=== PATIENT | female | born 1975 | race Caucasian/White ===

== ENCOUNTER 2018-06-16 13:59 | Emergency (ER) | payer OTHER, SELFPAY ==
[2018-06-16 14:15] VITALS: BP 124/82; PULSE 79; RESP 14; TEMP 37.7; O2SAT 100; BMI 28.1
--- NOTE | 2018-06-16 14:50 | PC.NURSE ---
Pt speaking with Chriss Welch
--- NOTE | 2018-06-16 14:51 | PC.NURSE ---
Pt talking with Chriss Welch
[2018-06-16 15:01] LABS: Urine Cocaine Negative (Negative); Urine Morphine/Opi cutoff 2000 Negative (Negative); Urine Tetrahydrocannabinol Positive (Negative)
[2018-06-16 15:02] LABS: Urine Amphetamines Negative (Negative); Urine Barbiturates Negative (Negative); Urine Benzodiazepines Negative (Negative); Urine MDMA Negative (Negative); Urine Methadone Negative (Negative); Urine Methamphetamines Negative (Negative); Urine Oxycodone Negative (Negative); Urine Phencyclidine Negative (Negative); Urine Tricyclic Antidepressant Positive (Negative)
--- NOTE | 2018-06-16 15:18 | ED.PSYCH ---
HPI - Psych <ASAD Greenberg - Last Filed: 06/16/18 21:48> General Chief Complaint: Psychiatric Symptoms Stated Complaint: Suicidal thoughts Time Seen by Provider: 06/16/18 14:29 Source: patient Mode of arrival: ambulatory Limitations: no limitations History of Present Illness HPI Narrative: 43-year-old female with a history of depression and anxiety that is a nonsmoker here for complaint of having suicidal ideations starting today. She states that she has a plan that she would like to jump off the bridge referencing deception past bridge. She states that she has not been on her depression anxiety medicine since March when she cold turkey quit. She reports that she has been having difficulties as of lately as she is going through a divorce and she is not on speaking terms with her daughter so therefore she does not have a support network available to her she really feels that she is having difficulties with daily tasks and taking care of herself. She denies any prior history of having suicidal ideations however there have been times where she wanted to . She denies any actions or history of self-harm. She denies any homicidal ideation. She is desiring inpatient services and is voluntary. She denies any alcohol or drug use. MD complaint: suicidal ideation Related Data Home Medications Medication Instructions Recorded Confirmed doxylamine succinate [Sleep Aid PO PRN PRN #0 11/28/16 05/17/18 (doxylamine)] Previous Rx's Medication Instructions Recorded duloxetine 30 mg capsule,delayed 30 mg PO QDAY #30 cap 12/05/17 release mirtazapine 15 mg tablet 15 mg PO DAILY #30 tab 05/17/18 lorazepam 1 mg PO BID PRN #2 tab 06/16/18 Allergies Allergy/AdvReac Type Severity Reaction Status Date / Time ofloxacin [From FLOXIN] Allergy Mild RASH Verified 06/16/18 14:15 Review of Systems <ASAD Greenberg - Last Filed: 06/16/18 21:48> Constitutional Denies chills, Denies fever(s), Denies lethargy and Denies weakness Eyes Denies change in vision, Denies eye discharge, Denies irritation and Denies loss of vision ENT Ears, Nose, Mouth, and Throat: Denies change in voice, Denies neck pain and Denies sore throat Cardiovascular Denies chest pain, Denies irregular heart rhythm, Denies lightheadedness, Denies palpitations, Denies dyspnea, Denies dyspnea on exertion and Denies orthopnea Respiratory Denies cough, Denies dyspnea, Denies dyspnea on exertion and Denies wheezing Gastrointestinal Gastrointestinal: Denies abdominal pain, Denies change in bowel habits, Denies diarrhea, Denies nausea and Denies vomiting Genitourinary Denies hematuria, Denies flank pain, Denies urinary incontinence and Denies urinary urgency Musculoskeletal Denies neck pain Integumentary/Breasts Denies pruritus, Denies erythema, Denies rash and Denies wounds Neurologic Denies confusion, Denies loss of vision and Denies weakness Psychiatric Denies anxiety, Denies confusion, Denies depression, Denies homicidal ideation and Reports suicidal ideation Endocrine Denies palpitations Hematologic/Lymphatic Denies easy bruising Allergic/Immunologic Denies wheezing PFSH <ASAD Greenberg - Last Filed: 06/16/18 21:48> Surgical History History of third molar tooth extraction Status post delivery (03/07/98) Social History Smoking Status: Former smoker Social History Smoking Status: Former smoker Exam <ASAD Greenberg - Last Filed: 06/16/18 21:48> Initial Vital Signs Initial Vital Signs: Vital Signs Temperature 99.8 F H 06/16/18 14:15 Pulse Rate 79 06/16/18 14:15 Respiratory Rate 14 06/16/18 14:15 Blood Pressure 124/82 06/16/18 14:15 Pulse Oximetry 100 06/16/18 14:15 Const General: cooperative and well developed Nutritional Appearance: well nourished Orientation: alert, awake, oriented x3 and not confused [facility] Mouth: oral mucosae normal and moist mucous membranes Eyes Conjunctivae: conjunctivae normal Sclera: sclerae normal Pupils: PERRL EOM: EOM intact bilaterally Resp Effort & Inspection: normal respiratory effort, able to speak in complete sentences, no respiratory distress and no use of accessory muscles Auscultation: clear to auscultation bilaterally, no rales, no rhonchi and no wheezes Cardio Rate: regular rate Rhythm: regular rhythm Heart Sounds: no click, no gallops, no murmurs and no rubs Skin General: no rashes or lesions noted, No jaundice and No petechiae Neuro General: alert, oriented x3, gait normal and no focal motor deficits Speech: speech normal Psych Speech and Movement: speech and movement normal Mood: congruent mood Affect: normal affect Attitude: cooperative Thought Process: normal Thought Content: no homicidality and suicidality <Jenn Walker DO - Last Filed: 06/17/18 08:29> Initial Vital Signs Initial Vital Signs: Vital Signs Temperature 99.8 F H 06/16/18 14:15 Pulse Rate 79 06/16/18 14:15 Respiratory Rate 14 06/16/18 14:15 Blood Pressure 124/82 06/16/18 14:15 Pulse Oximetry 100 06/16/18 14:15 Course <ASAD Greenberg - Last Filed: 06/16/18 21:48> Orders Ordered: Discontinued Medications Lorazepam (Ativan) 0.5 mg PO NOW ONE Stop: 06/16/18 16:18 Last Admin: 06/16/18 16:18 Dose: 0.5 mg Vital Signs - 8 hr 06/16/18 14:15 06/16/18 18:13 Temperature 99.8 F H Pulse Rate 79 97 H Respiratory Rate 14 14 Blood Pressure 124/82 Blood Pressure [Left Arm] 127/88 Pulse Oximetry 100 99 <Jenn Walker DO - Last Filed: 06/17/18 08:29> Orders Ordered: Discontinued Medications Lorazepam (Ativan) 0.5 mg PO NOW ONE Stop: 06/16/18 16:18 Last Admin: 06/16/18 16:18 Dose: 0.5 mg Vital Signs - 8 hr 06/16/18 14:15 06/16/18 18:13 Temperature 99.8 F H Pulse Rate 79 97 H Respiratory Rate 14 14 Blood Pressure 124/82 Blood Pressure [Left Arm] 127/88 Pulse Oximetry 100 99 MDM - Psych <ASAD Greenberg - Last Filed: 06/16/18 21:48> Lab Data Result diagrams: 06/16/18 15:30 06/16/18 15:30 Lab Results 06/16/18 06/16/18 06/16/18 Range/Units 14:27 15:30 15:30 WBC 7.4 (4.5-11.0) X10^3/uL RBC 4.47 (4.0-5.2) X10^6/uL Hgb 14.0 (12.0-16.0) g/dL Hct 41.7 (36-46) % MCV 93.3 (80-100) fL MCH 31.3 (26-34) PG MCHC 33.6 (30-36) % RDW 12.5 (11.6-14.8) % Plt Count 254 (150-400) X10^3/uL Neut % (Auto) 69.9 (50-75) % Lymph % (Auto) 21.8 L (25-40) % Moca % (Auto) 6.1 (3-14) % Eos % (Auto) 1.4 L (2-4) % Baso % (Auto) 0.8 (0-2) % Neut # (Auto) 5200 (8454-7099) /uL Lymph # (Auto) 1600 (8704-2707) /uL Moca # (Auto) 500 (0-900) /uL Eos # (Auto) 100 (0-450) /uL Baso # (Auto) 100 (0-100) /uL Sodium 141 (137-145) mmol/L Potassium 4.5 (3.4-5.1) mmol/L Chloride 106 (98-107) mmol/L Carbon Dioxide 26 (22-32) mmol/L BUN 16 (7-17) mg/dL Creatinine 0.70 (0.52-1.04) mg/dL Estimated GFR > 60.0 (>60) mL/min BUN/Creatinine Ratio 22.9 H (6-22) Glucose 126 H (70-100) mg/dL Calcium 9.5 (8.4-10.2) mg/dL Total Bilirubin 0.4 (0.2-1.3) mg/dL AST 26 (14-36) IU/L ALT 38 (9-52) IU/L Alkaline Phosphatase 66 (38-126) U/L Total Protein 7.2 (6.3-8.2) g/dL Albumin 4.3 (3.5-5.0) g/dL Globulin 2.9 (1.7-4.1) g/dL Albumin/Globulin Ratio 1.5 (1.0-2.8) TSH (0.47-4.68) uIU/mL Urine Opiates Screen Negative (Negative) Ur Oxycodone Screen Negative (Negative) Urine Methadone Screen Negative (Negative) Ur Barbiturates Screen Negative (Negative) U Tricyclic Antidepress Positive H (Negative) Ur Phencyclidine Scrn Negative (Negative) Ur Amphetamines Screen Negative (Negative) U Methamphetamines Scrn Negative (Negative) Ur MDMA Scrn (Ecstasy) Negative (Negative) U Benzodiazepines Scrn Negative (Negative) Urine Cocaine Screen Negative (Negative) U Marijuana (THC) Screen Positive H (Negative) 06/16/18 Range/Units 15:30 WBC (4.5-11.0) X10^3/uL RBC (4.0-5.2) X10^6/uL Hgb (12.0-16.0) g/dL Hct (36-46) % MCV (80-100) fL MCH (26-34) PG MCHC (30-36) % RDW (11.6-14.8) % Plt Count (150-400) X10^3/uL Neut % (Auto) (50-75) % Lymph % (Auto) (25-40) % Moca % (Auto) (3-14) % Eos % (Auto) (2-4) % Baso % (Auto) (0-2) % Neut # (Auto) (1714-7468) /uL Lymph # (Auto) (2712-9902) /uL Moca # (Auto) (0-900) /uL Eos # (Auto) (0-450) /uL Baso # (Auto) (0-100) /uL Sodium (137-145) mmol/L Potassium (3.4-5.1) mmol/L Chloride (98-107) mmol/L Carbon Dioxide (22-32) mmol/L BUN (7-17) mg/dL Creatinine (0.52-1.04) mg/dL Estimated GFR (>60) mL/min BUN/Creatinine Ratio (6-22) Glucose (70-100) mg/dL Calcium (8.4-10.2) mg/dL Total Bilirubin (0.2-1.3) mg/dL AST (14-36) IU/L ALT (9-52) IU/L Alkaline Phosphatase (38-126) U/L Total Protein (6.3-8.2) g/dL Albumin (3.5-5.0) g/dL Globulin (1.7-4.1) g/dL Albumin/Globulin Ratio (1.0-2.8) TSH 2.29 (0.47-4.68) uIU/mL Urine Opiates Screen (Negative) Ur Oxycodone Screen (Negative) Urine Methadone Screen (Negative) Ur Barbiturates Screen (Negative) U Tricyclic Antidepress (Negative) Ur Phencyclidine Scrn (Negative) Ur Amphetamines Screen (Negative) U Methamphetamines Scrn (Negative) Ur MDMA Scrn (Ecstasy) (Negative) U Benzodiazepines Scrn (Negative) Urine Cocaine Screen (Negative) U Marijuana (THC) Screen (Negative) Point of Care Testing Test Results Negative Breathalizer 0 Urine Dip Bedside Urine Glucose Negative Bedside Urine Bilirubin - Negative Bedside Urine Ketone - Negative Urine Specific [place] 1.020 Bedside Urine Occult Blood +++ Bedside Urine pH 6.0 Bedside Urine Protein - Negative Bedside Urine Urobilinogen - Negative Bedside Urine Nitrite - Negative Bedside Urine Leukocytes - Negative Esterase MDM Narrative Medical decision making narrative: CBC was obtained was unremarkable. Chem panel was also obtained was also unremarkable. Urinalysis Indicated WBCs and leuko esterase however she had 1-5 of squamous cells and she denies having any urinary symptoms. Will hold on treatment for UTI at this timeframe. Urine drug screen was positive for marijuana and tricyclics. Inpatient bed was found at [facility] and accepted her. The patient had a change of heart and decided that she wanted to go home. She was concerned about her pets at home and also the cost of inpatient services. Had good discussion with patient about his safety and that I was concerned about her going home to an empty house. She states that she would have her stay with her in the next couple of days so that we she would not be home. She verbalized agreement to safety and that she would not do anything dangerous to harm herself or others. She was set up by [facility] they will call her tomorrow to check on her. She has the hotline number that she will call or call 911 or go to the emergency room if things worsen. She requested a few tablets of medication to help with any anxiety. Due to her current state she is only given 2 tablets of Ativan 1 per day until she can get by until Monday. In when time she will see [facility]. <Jenn Walker, DO - Last Filed: 06/17/18 08:29> Lab Data Lab Results 06/16/18 06/16/18 06/16/18 Range/Units 14:27 15:30 15:30 WBC 7.4 (4.5-11.0) X10^3/uL RBC 4.47 (4.0-5.2) X10^6/uL Hgb 14.0 (12.0-16.0) g/dL Hct 41.7 (36-46) % MCV 93.3 (80-100) fL MCH 31.3 (26-34) PG MCHC 33.6 (30-36) % RDW 12.5 (11.6-14.8) % Plt Count 254 (150-400) X10^3/uL Neut % (Auto) 69.9 (50-75) % Lymph % (Auto) 21.8 L (25-40) % Moca % (Auto) 6.1 (3-14) % Eos % (Auto) 1.4 L (2-4) % Baso % (Auto) 0.8 (0-2) % Neut # (Auto) 5200 (1729-4518) /uL Lymph # (Auto) 1600 (4985-5895) /uL Moca # (Auto) 500 (0-900) /uL Eos # (Auto) 100 (0-450) /uL Baso # (Auto) 100 (0-100) /uL Sodium 141 (137-145) mmol/L Potassium 4.5 (3.4-5.1) mmol/L Chloride 106 (98-107) mmol/L Carbon Dioxide 26 (22-32) mmol/L BUN 16 (7-17) mg/dL Creatinine 0.70 (0.52-1.04) mg/dL Estimated GFR > 60.0 (>60) mL/min BUN/Creatinine Ratio 22.9 H (6-22) Glucose 126 H (70-100) mg/dL Calcium 9.5 (8.4-10.2) mg/dL Total Bilirubin 0.4 (0.2-1.3) mg/dL AST 26 (14-36) IU/L ALT 38 (9-52) IU/L Alkaline Phosphatase 66 (38-126) U/L Total Protein 7.2 (6.3-8.2) g/dL Albumin 4.3 (3.5-5.0) g/dL Globulin 2.9 (1.7-4.1) g/dL Albumin/Globulin Ratio 1.5 (1.0-2.8) TSH (0.47-4.68) uIU/mL Urine Opiates Screen Negative (Negative) Ur Oxycodone Screen Negative (Negative) Urine Methadone Screen Negative (Negative) Ur Barbiturates Screen Negative (Negative) U Tricyclic Antidepress Positive H (Negative) Ur Phencyclidine Scrn Negative (Negative) Ur Amphetamines Screen Negative (Negative) U Methamphetamines Scrn Negative (Negative) Ur MDMA Scrn (Ecstasy) Negative (Negative) U Benzodiazepines Scrn Negative (Negative) Urine Cocaine Screen Negative (Negative) U Marijuana (THC) Screen Positive H (Negative) 06/16/18 Range/Units 15:30 WBC (4.5-11.0) X10^3/uL RBC (4.0-5.2) X10^6/uL Hgb (12.0-16.0) g/dL Hct (36-46) % MCV (80-100) fL MCH (26-34) PG MCHC (30-36) % RDW (11.6-14.8) % Plt Count (150-400) X10^3/uL Neut % (Auto) (50-75) % Lymph % (Auto) (25-40) % Moca % (Auto) (3-14) % Eos % (Auto) (2-4) % Baso % (Auto) (0-2) % Neut # (Auto) (8422-7002) /uL Lymph # (Auto) (6110-4296) /uL Moca # (Auto) (0-900) /uL Eos # (Auto) (0-450) /uL Baso # (Auto) (0-100) /uL Sodium (137-145) mmol/L Potassium (3.4-5.1) mmol/L Chloride (98-107) mmol/L Carbon Dioxide (22-32) mmol/L BUN (7-17) mg/dL Creatinine (0.52-1.04) mg/dL Estimated GFR (>60) mL/min BUN/Creatinine Ratio (6-22) Glucose (70-100) mg/dL Calcium (8.4-10.2) mg/dL Total Bilirubin (0.2-1.3) mg/dL AST (14-36) IU/L ALT (9-52) IU/L Alkaline Phosphatase (38-126) U/L Total Protein (6.3-8.2) g/dL Albumin (3.5-5.0) g/dL Globulin (1.7-4.1) g/dL Albumin/Globulin Ratio (1.0-2.8) TSH 2.29 (0.47-4.68) uIU/mL Urine Opiates Screen (Negative) Ur Oxycodone Screen (Negative) Urine Methadone Screen (Negative) Ur Barbiturates Screen (Negative) U Tricyclic Antidepress (Negative) Ur Phencyclidine Scrn (Negative) Ur Amphetamines Screen (Negative) U Methamphetamines Scrn (Negative) Ur MDMA Scrn (Ecstasy) (Negative) U Benzodiazepines Scrn (Negative) Urine Cocaine Screen (Negative) U Marijuana (THC) Screen (Negative) Point of Care Testing Test Results Negative Breathalizer 0 Urine Dip Bedside Urine Glucose Negative Bedside Urine Bilirubin - Negative Bedside Urine Ketone - Negative Urine Specific [place] 1.020 Bedside Urine Occult Blood +++ Bedside Urine pH 6.0 Bedside Urine Protein - Negative Bedside Urine Urobilinogen - Negative Bedside Urine Nitrite - Negative Bedside Urine Leukocytes - Negative Esterase Discharge Plan Departure Patient Disposition: Home Clinical Impression: Suicidal ideation Discharge Date/Time: 06/16/18 18:23 Interventions: ED Discharge Assessment Last Done: 06/16/18 18:23 Instructions: DI for Suicidal Ideation-Adult Activity Restrictions/Additional Instructions: Follow up with [facility] as directed in the next couple of days. They will call on you to check to ensure that you are doing well. If symptoms worsen call the hotline number or call 911 or return to the emergency room. A couple of Ativan tablets have been prescribed to help with anxiety to use over the next couple of days. Follow up with primary care provider. Return emergency room for worsening symptoms. Prescriptions: New lorazepam 1 mg tablet 1 mg PO BID PRN (Reason: anxiety) Qty: 2 RF: 0 No Action mirtazapine 15 mg tablet 15 mg PO DAILY Qty: 30 RF: 0 doxylamine succinate [Sleep Aid (doxylamine)] 25 MG tablet PO PRN PRNQty: 0 RF: 0 duloxetine 30 mg capsule,delayed release(DR/EC) 30 mg PO QDAY Qty: 30 RF: 3 Referrals: [facility] [Provider Group] <Jenn Walker DO - Last Filed: 06/17/18 08:29> Cosign ED Attending Shanta Attestation: I was immediately available in the department for consultation. Documentation has been reviewed. I agree with assessment and plan.
[2018-06-16 15:37] LABS: Add Manual Diff / Slide Review NO; Basophils Absolute Auto 100 /uL (0-100); Basophils Percent Auto 0.8 % (0-2); Eosinophils Absolute Auto 100 /uL (0-450); Eosinophils Percent Auto 1.4 % (2-4); Hematocrit 41.7 % (36-46); Lymphocytes Absolute Auto 1600 /uL (1100-4500); Lymphocytes Percent Auto 21.8 % (25-40); Mean Corpuscular HGB Conc 33.6 % (30-36); Mean Corpuscular Hemoglobin 31.3 PG (26-34); Mean Corpuscular Volume 93.3 fL (80-100); Monocytes Absolute Auto 500 /uL (0-900); Monocytes Percent Auto 6.1 % (3-14); Neutrophils Absolute Auto 5200 /uL (1500-7000); Neutrophils Percent Auto 69.9 % (50-75); Platelet Count 254 X10^3/uL (150-400); Red Blood Cell Count 4.47 X10^6/uL (4.0-5.2); Red Cell Distribution Width 12.5 % (11.6-14.8); White Blood Cell Count 7.4 X10^3/uL (4.5-11.0)
[2018-06-16 15:48] LABS: Alanine Aminotransferase 38 IU/L (9-52); Albumin 4.3 g/dL (3.5-5.0); Albumin Globulin Ratio 1.5 (1.0-2.8); Alkaline Phosphatase 66 U/L (38-126); Aspartate Aminotransferase 26 IU/L (14-36); BUN Creatinine Ratio 22.9 (6-22); Bilirubin Total 0.4 mg/dL (0.2-1.3); Blood Urea Nitrogen 16 mg/dL (7-17); Calcium 9.5 mg/dL (8.4-10.2); Carbon Dioxide 26 mmol/L (22-32); Chloride 106 mmol/L (98-107); Estimated Glomerular Filt Rate > 60.0 mL/min (>60); Globulin 2.9 g/dL (1.7-4.1); Glucose 126 mg/dL (70-100); HEMOLYSIS < 15 (0-50); Potassium 4.5 mmol/L (3.4-5.1); Sodium 141 mmol/L (137-145); Total Protein 7.2 g/dL (6.3-8.2)
--- NOTE | 2018-06-16 15:50 | ED_ITS ---
HPI - Psych <ASAD Greenberg - Last Filed: 06/16/18 21:48> General Chief Complaint: Psychiatric Symptoms Stated Complaint: Suicidal thoughts Time Seen by Provider: 06/16/18 14:29 Source: patient Mode of arrival: ambulatory Limitations: no limitations History of Present Illness HPI Narrative: 43-year-old female with a history of depression and anxiety that is a nonsmoker here for complaint of having suicidal ideations starting today. She states that she has a plan that she would like to jump off the bridge referencing deception past bridge. She states that she has not been on her de pression anxiety medicine since March when she cold turkey quit. She reports that she has been having difficulties as of lately as she is going through a divorce and she is not on speaking terms with her daughter so therefore she does not have a support network available to her she really feels that she is having difficulties with daily tasks and taking care of herself. She denies any prior history of having suicidal ideations however there have been times where she wanted to . She denies any actions or history of self-harm. She denies any homicidal ideation. She is desiring inpatient services and is voluntary. She denies any alcohol or drug use. MD complaint: suicidal ideation Related Data Home Medications Medication Instructions Recorded Confirmed doxylamine succinate [Sleep Aid PO PRN PRN #0 11/28/16 05/17/18 (doxylamine)] Previous Rx's Medication Instructions Recorded duloxetine 30 mg capsule,delayed 30 mg PO QDAY #30 cap 12/05/17 release mirtazapine 15 mg tablet 15 mg PO DAILY #30 tab 05/17/18 lorazepam 1 mg PO BID PRN #2 tab 06/16/18 Allergies Allergy/AdvReac Type Severity Reaction Status Date / Time ofloxacin [From FLOXIN] Allergy Mild RASH Verified 06/16/18 14:15 Review of Systems <ASAD Greenberg - Last Filed: 06/16/18 21:48> Constitutional Denies chills, Denies fever(s), Denies lethargy and Denies weakness Eyes Denies change in vision, Denies eye discharge, Denies irritation and Denies loss of vision ENT Ears, Nose, Mouth, and Throat: Denies change in voice, Denies neck pain and Denies sore throat Cardiovascular Denies chest pain, Denies irregular heart rhythm, Denies lightheadedness, Denies palpitations, Denies dyspnea, Denies dyspnea on exertion and Denies orthopnea Respiratory Denies cough, Denies dyspnea, Denies dyspnea on exertion and Denies wheezing Gastrointestinal Gastrointestinal: Denies abdominal pain, Denies change in bowel habits, Denies diarrhea, Denies nausea and Denies vomiting Genitourinary Denies hematuria, Denies flank pain, Denies urinary incontinence and Denies urinary urgency Musculoskeletal Denies neck pain Integumentary/Breasts Denies pruritus, Denies erythema, Denies rash and Denies wounds Neurologic Denies confusion, Denies loss of vision and Denies weakness Psychiatric Denies anxiety, Denies confusion, Denies depression, Denies homicidal ideation and Reports suicidal ideation Endocrine Denies palpitations Hematologic/Lymphatic Denies easy bruising Allergic/Immunologic Denies wheezing PFSH <ASAD Greenberg - Last Filed: 06/16/18 21:48> Surgical History History of third molar tooth extraction Status post delivery (03/07/98) Social History Smoking Status: Former smoker Social History Smoking Status: Former smoker Exam <ASAD Greenberg - Last Filed: 06/16/18 21:48> Initial Vital Signs Initial Vital Signs: Vital Signs Temperature 99.8 F H 06/16/18 14:15 Pulse Rate 79 06/16/18 14:15 Respiratory Rate 14 06/16/18 14:15 Blood Pressure 124/82 06/16/18 14:15 Pulse Oximetry 100 06/16/18 14:15 Const General: cooperative and well developed Nutritional Appearance: well nourished Orientation: alert, awake, oriented x3 and not confused [facility] Mouth: oral mucosae normal and moist mucous membranes Eyes Conjunctivae: conjunctivae normal Sclera: sclerae normal Pupils: PERRL EOM: EOM intact bilaterally Resp Effort & Inspection: normal respiratory effort, able to speak in complete sentences, no respiratory distress and no use of accessory muscles Auscultation: clear to auscultation bilaterally, no rales, no rhonchi and no wheezes Cardio Rate: regular rate Rhythm: regular rhythm Heart Sounds: no click, no gallops, no murmurs and no rubs Skin General: no rashes or lesions noted, No jaundice and No petechiae Neuro General: alert, oriented x3, gait normal and no focal motor deficits Speech: speech normal Psych Speech and Movement: speech and movement normal Mood: congruent mood Affect: normal affect Attitude: cooperative Thought Process: normal Thought Content: no homicidality and suicidality <Jenn Walker DO - Last Filed: 06/17/18 08:29> Initial Vital Signs Initial Vital Signs: Vital Signs Temperature 99.8 F H 06/16/18 14:15 Pulse Rate 79 06/16/18 14:15 Respiratory Rate 14 06/16/18 14:15 Blood Pressure 124/82 06/16/18 14:15 Pulse Oximetry 100 06/16/18 14:15 Course <ASAD Greenberg - Last Filed: 06/16/18 21:48> Orders Ordered: Discontinued Medications Lorazepam (Ativan) 0.5 mg PO NOW ONE Stop: 06/16/18 16:18 Last Admin: 06/16/18 16:18 Dose: 0.5 mg Vital Signs - 8 hr 06/16/18 14:15 06/16/18 18:13 Temperature 99.8 F H Pulse Rate 79 97 H Respiratory Rate 14 14 Blood Pressure 124/82 Blood Pressure [Left Arm] 127/88 Pulse Oximetry 100 99 <Jenn Walker DO - Last Filed: 06/17/18 08:29> Orders Ordered: Discontinued Medications Lorazepam (Ativan) 0.5 mg PO NOW ONE Stop: 06/16/18 16:18 Last Admin: 06/16/18 16:18 Dose: 0.5 mg Vital Signs - 8 hr 06/16/18 14:15 06/16/18 18:13 Temperature 99.8 F H Pulse Rate 79 97 H Respiratory Rate 14 14 Blood Pressure 124/82 Blood Pressure [Left Arm] 127/88 Pulse Oximetry 100 99 MDM - Psych <ASAD Greenberg - Last Filed: 06/16/18 21:48> Lab Data Result diagrams: 06/16/18 15:30 06/16/18 15:30 Lab Results 06/16/18 06/16/18 06/16/18 Range/Units 14:27 15:30 15:30 WBC 7.4 (4.5-11.0) X10^3/uL RBC 4.47 (4.0-5.2) X10^6/uL Hgb 14.0 (12.0-16.0) g/dL Hct 41.7 (36-46) % MCV 93.3 (80-100) fL MCH 31.3 (26-34) PG MCHC 33.6 (30-36) % RDW 12.5 (11.6-14.8) % Plt Count 254 (150-400) X10^3/uL Neut % (Auto) 69.9 (50-75) % Lymph % (Auto) 21.8 L (25-40) % Towner % (Auto) 6.1 (3-14) % Eos % (Auto) 1.4 L (2-4) % Baso % (Auto) 0.8 (0-2) % Neut # (Auto) 5200 (8556-2557) /uL Lymph # (Auto) 1600 (1369-9854) /uL Towner # (Auto) 500 (0-900) /uL Eos # (Auto) 100 (0-450) /uL Baso # (Auto) 100 (0-100) /uL Sodium 141 (137-145) mmol/L Potassium 4.5 (3.4-5.1) mmol/L Chloride 106 (98-107) mmol/L Carbon Dioxide 26 (22-32) mmol/L BUN 16 (7-17) mg/dL Creatinine 0.70 (0.52-1.04) mg/dL Estimated GFR > 60.0 (>60) mL/min BUN/Creatinine Ratio 22.9 H (6-22) Glucose 126 H (70-100) mg/dL Calcium 9.5 (8.4-10.2) mg/dL Total Bilirubin 0.4 (0.2-1.3) mg/dL AST 26 (14-36) IU/L ALT 38 (9-52) IU/L Alkaline Phosphatase 66 (38-126) U/L Total Protein 7.2 (6.3-8.2) g/dL Albumin 4.3 (3.5-5.0) g/dL Globulin 2.9 (1.7-4.1) g/dL Albumin/Globulin Ratio 1.5 (1.0-2.8) TSH (0.47-4.68) uIU/mL Urine Opiates Screen Negative (Negative) Ur Oxycodone Screen Negative (Negative) Urine Methadone Screen Negative (Negative) Ur Barbiturates Screen Negative (Negative) U Tricyclic Antidepress Positive H (Negative) Ur Phencyclidine Scrn Negative (Negative) Ur Amphetamines Screen Negative (Negative) U Methamphetamines Scrn Negative (Negative) Ur MDMA Scrn (Ecstasy) Negative (Negative) U Benzodiazepines Scrn Negative (Negative) Urine Cocaine Screen Negative (Negative) U Marijuana (THC) Screen Positive H (Negative) 06/16/18 Range/Units 15:30 WBC (4.5-11.0) X10^3/uL RBC (4.0-5.2) X10^6/uL Hgb (12.0-16.0) g/dL Hct (36-46) % MCV (80-100) fL MCH (26-34) PG MCHC (30-36) % RDW (11.6-14.8) % Plt Count (150-400) X10^3/uL Neut % (Auto) (50-75) % Lymph % (Auto) (25-40) % Towner % (Auto) (3-14) % Eos % (Auto) (2-4) % Baso % (Auto) (0-2) % Neut # (Auto) (0968-5501) /uL Lymph # (Auto) (0921-0024) /uL Towner # (Auto) (0-900) /uL Eos # (Auto) (0-450) /uL Baso # (Auto) (0-100) /uL Sodium (137-145) mmol/L Potassium (3.4-5.1) mmol/L Chloride (98-107) mmol/L Carbon Dioxide (22-32) mmol/L BUN (7-17) mg/dL Creatinine (0.52-1.04) mg/dL Estimated GFR (>60) mL/min BUN/Creatinine Ratio (6-22) Glucose (70-100) mg/dL Calcium (8.4-10.2) mg/dL Total Bilirubin (0.2-1.3) mg/dL AST (14-36) IU/L ALT (9-52) IU/L Alkaline Phosphatase (38-126) U/L Total Protein (6.3-8.2) g/dL Albumin (3.5-5.0) g/dL Globulin (1.7-4.1) g/dL Albumin/Globulin Ratio (1.0-2.8) TSH 2.29 (0.47-4.68) uIU/mL Urine Opiates Screen (Negative) Ur Oxycodone Screen (Negative) Urine Methadone Screen (Negative) Ur Barbiturates Screen (Negative) U Tricyclic Antidepress (Negative) Ur Phencyclidine Scrn (Negative) Ur Amphetamines Screen (Negative) U Methamphetamines Scrn (Negative) Ur MDMA Scrn (Ecstasy) (Negative) U Benzodiazepines Scrn (Negative) Urine Cocaine Screen (Negative) U Marijuana (THC) Screen (Negative) Point of Care Testing Test Results Negative Breathalizer 0 Urine Dip Bedside Urine Glucose Negative Bedside Urine Bilirubin - Negative Bedside Urine Ketone - Negative Urine Specific Bee 1.020 Bedside Urine Occult Blood +++ Bedside Urine pH 6.0 Bedside Urine Protein - Negative Bedside Urine Urobilinogen - Negative Bedside Urine Nitrite - Negative Bedside Urine Leukocytes - Negative Esterase MDM Narrative Medical decision making narrative: CBC was obtained was unremarkable. Chem panel was also obtained was also unremarkable. Urinalysis Indicated WBCs and leuko esterase however she had 1-5 of squamous cells and she denies having any urinary symptoms. Will hold on treatment for UTI at this timeframe. Urine drug screen was positive for marijuana and tricyclics. Inpatient bed was found at [facility] and accepted her. The patient had a change of heart and decided that she wanted to go home. She was concerned about her pets at home and also the cost of inpatient services. Had good discussion with patient about his safety and that I was concerned about her going home to an empty house. She states that she would have her stay with her in the next couple of days so that we she would not be home. She verbalized agreement to safety and that she would not do anything dangerous to harm herself or others. She was set up by [facility] they will call her tomorrow to check on her. She has the hotline number that she will call or call 911 or go to the emergency room if things worsen. She requested a few tablets of medication to help with any anxiety. Due to her current state she is only given 2 tablets of Ativan 1 per day until she can get by until Monday. In when time she will see [facility]. <Jenn Stephaniejorge a, DO - Last Filed: 06/17/18 08:29> Lab Data Lab Results 06/16/18 06/16/18 06/16/18 Range/Units 14:27 15:30 15:30 WBC 7.4 (4.5-11.0) X10^3/uL RBC 4.47 (4.0-5.2) X10^6/uL Hgb 14.0 (12.0-16.0) g/dL Hct 41.7 (36-46) % MCV 93.3 (80-100) fL MCH 31.3 (26-34) PG MCHC 33.6 (30-36) % RDW 12.5 (11.6-14.8) % Plt Count 254 (150-400) X10^3/uL Neut % (Auto) 69.9 (50-75) % Lymph % (Auto) 21.8 L (25-40) % Towner % (Auto) 6.1 (3-14) % Eos % (Auto) 1.4 L (2-4) % Baso % (Auto) 0.8 (0-2) % Neut # (Auto) 5200 (2331-5234) /uL Lymph # (Auto) 1600 (4824-9941) /uL Towner # (Auto) 500 (0-900) /uL Eos # (Auto) 100 (0-450) /uL Baso # (Auto) 100 (0-100) /uL Sodium 141 (137-145) mmol/L Potassium 4.5 (3.4-5.1) mmol/L Chloride 106 (98-107) mmol/L Carbon Dioxide 26 (22-32) mmol/L BUN 16 (7-17) mg/dL Creatinine 0.70 (0.52-1.04) mg/dL Estimated GFR > 60.0 (>60) mL/min BUN/Creatinine Ratio 22.9 H (6-22) Glucose 126 H (70-100) mg/dL Calcium 9.5 (8.4-10.2) mg/dL Total Bilirubin 0.4 (0.2-1.3) mg/dL AST 26 (14-36) IU/L ALT 38 (9-52) IU/L Alkaline Phosphatase 66 (38-126) U/L Total Protein 7.2 (6.3-8.2) g/dL Albumin 4.3 (3.5-5.0) g/dL Globulin 2.9 (1.7-4.1) g/dL Albumin/Globulin Ratio 1.5 (1.0-2.8) TSH (0.47-4.68) uIU/mL Urine Opiates Screen Negative (Negative) Ur Oxycodone Screen Negative (Negative) Urine Methadone Screen Negative (Negative) Ur Barbiturates Screen Negative (Negative) U Tricyclic Antidepress Positive H (Negative) Ur Phencyclidine Scrn Negative (Negative) Ur Amphetamines Screen Negative (Negative) U Methamphetamines Scrn Negative (Negative) Ur MDMA Scrn (Ecstasy) Negative (Negative) U Benzodiazepines Scrn Negative (Negative) Urine Cocaine Screen Negative (Negative) U Marijuana (THC) Screen Positive H (Negative) 06/16/18 Range/Units 15:30 WBC (4.5-11.0) X10^3/uL RBC (4.0-5.2) X10^6/uL Hgb (12.0-16.0) g/dL Hct (36-46) % MCV (80-100) fL MCH (26-34) PG MCHC (30-36) % RDW (11.6-14.8) % Plt Count (150-400) X10^3/uL Neut % (Auto) (50-75) % Lymph % (Auto) (25-40) % Towner % (Auto) (3-14) % Eos % (Auto) (2-4) % Baso % (Auto) (0-2) % Neut # (Auto) (3652-5920) /uL Lymph # (Auto) (9285-0653) /uL Towner # (Auto) (0-900) /uL Eos # (Auto) (0-450) /uL Baso # (Auto) (0-100) /uL Sodium (137-145) mmol/L Potassium (3.4-5.1) mmol/L Chloride (98-107) mmol/L Carbon Dioxide (22-32) mmol/L BUN (7-17) mg/dL Creatinine (0.52-1.04) mg/dL Estimated GFR (>60) mL/min BUN/Creatinine Ratio (6-22) Glucose (70-100) mg/dL Calcium (8.4-10.2) mg/dL Total Bilirubin (0.2-1.3) mg/dL AST (14-36) IU/L ALT (9-52) IU/L Alkaline Phosphatase (38-126) U/L Total Protein (6.3-8.2) g/dL Albumin (3.5-5.0) g/dL Globulin (1.7-4.1) g/dL Albumin/Globulin Ratio (1.0-2.8) TSH 2.29 (0.47-4.68) uIU/mL Urine Opiates Screen (Negative) Ur Oxycodone Screen (Negative) Urine Methadone Screen (Negative) Ur Barbiturates Screen (Negative) U Tricyclic Antidepress (Negative) Ur Phencyclidine Scrn (Negative) Ur Amphetamines Screen (Negative) U Methamphetamines Scrn (Negative) Ur MDMA Scrn (Ecstasy) (Negative) U Benzodiazepines Scrn (Negative) Urine Cocaine Screen (Negative) U Marijuana (THC) Screen (Negative) Point of Care Testing Test Results Negative Breathalizer 0 Urine Dip Bedside Urine Glucose Negative Bedside Urine Bilirubin - Negative Bedside Urine Ketone - Negative Urine Specific Bee 1.020 Bedside Urine Occult Blood +++ Bedside Urine pH 6.0 Bedside Urine Protein - Negative Bedside Urine Urobilinogen - Negative Bedside Urine Nitrite - Negative Bedside Urine Leukocytes - Negative Esterase Discharge Plan Departure Patient Disposition: Home Clinical Impression: Suicidal ideation Discharge Date/Time: 06/16/18 18:23 Interventions: ED Discharge Assessment Last Done: 06/16/18 18:23 Instructions: DI for Suicidal Ideation-Adult Activity Restrictions/Additional Instructions: Follow up with [facility] as directed in the next couple of days. They will call on you to check to ensure that you are doing well. If symptoms worsen call the hotline number or call 911 or return to the emergency room. A couple of Ativan tablets have been prescribed to help with anxiety to use over the next couple of days. Follow up with primary care provider. Return emergency room for worsening symptoms. Prescriptions: New lorazepam 1 mg tablet 1 mg PO BID PRN (Reason: anxiety) Qty: 2 RF: 0 No Action mirtazapine 15 mg tablet 15 mg PO DAILY Qty: 30 RF: 0 doxylamine succinate [Sleep Aid (doxylamine)] 25 MG tablet PO PRN PRNQty: 0 RF: 0 duloxetine 30 mg capsule,delayed release(DR/EC) 30 mg PO QDAY Qty: 30 RF: 3 Referrals: [facility] [Provider Group] <Jenn Walker DO - Last Filed: 06/17/18 08:29> Cosign ED Attending Shanta Attestation: I was immediately available in the department for consultation. Documentation has been reviewed. I agree with assessment and plan.
[2018-06-16 16:18] LABS: Thyroid Stimulating Hormone 2.29 uIU/mL (0.47-4.68)
[2018-06-16] MEDS: LORazepam 0.5 MG TABLET PO (16:18)
--- NOTE | 2018-06-16 16:24 | PC.NURSE ---
Pt medicated with Ativan 0.5mg at this time due to feeling anxious and feel like having a panick attack. Pt reports worrying about the hospital bill and now do not wanting to go to the facility. Pt redirectly and informed and pt's safety and help with acute crisis is priority at this time. Will continue to monitor
--- NOTE | 2018-06-16 16:47 | PC.NURSE ---
Pt reports feeling anxious at this time and panicky. Pt cooperative and appropriate with this RN. [facility] accepted and expecting the patient arrival at 7pm per Abril on the phone call
--- NOTE | 2018-06-16 16:52 | PC.NURSE ---
PAIGE Tomlin at bedside with pt and assessing pt. Pt is now concerned about her pets at home if pt gets admitted to the facility for a treatment.
--- NOTE | 2018-06-16 17:01 | PC.NURSE ---
Pt is trying to get in touch with her ex-spouse to make an arrangement to seek help with her pets. GENESIS Edouard contacted [facility] dispatcher to seek help as well and waiting for a return call.
--- NOTE | 2018-06-16 17:51 | PC.NURSE ---
Pt reports mild improvement in feeling anxious at this time. Waiting for dc instruction and her ex-spouse's arrival.
--- NOTE | 2018-06-16 18:09 | PC.NURSE ---
Pt's ex-spose, Kelly, here to get pt and to stay with patient for a few days and have her follow up as outpt reach program. Called [facility] to inform on the change in plan and also the [facility] transfer to cancel the bed/ambulance services.
[2018-06-16 18:13] VITALS: BP 127/88; PULSE 97; RESP 14; O2SAT 99
== END 2018-06-16 18:23 | disposition home or self-care (01) ==
PROVIDERS: Emergency Provider Nurse Practitioner Family
DX: R45.851 Suicidal ideations (principal)
CPT/HCPCS: 36415; 80053; 80305; 81003; 81025; 82075; 84443; 85025; 99282; 99283

== ENCOUNTER → 2018-07-29 10:56 | Outpatient (CLI) | payer OTHER, MEDICAID, SELFPAY | PROVIDERS: Visit Provider Physician Assistant | DX: N39.0 Urinary tract infection, site not specified (principal) | CPT/HCPCS: 87086 ==

== ENCOUNTER 2018-08-01 15:34 | Emergency (ER) | payer OTHER, MEDICAID, SELFPAY ==
[2018-08-01 15:39] VITALS: BP 109/78; PULSE 82; RESP 18; TEMP 36.8; O2SAT 100; BMI 27.3
--- NOTE | 2018-08-01 16:01 | PC.NURSE ---
pt states he thinks about if she would accidentally id have a heart attack, or not wake up
--- NOTE | 2018-08-01 16:44 | PC.NURSE ---
Patient placed in our green paper scrubs. remains at bedside and plans to remain there for duration of stay. Patient agrees to safety contract. Agrees not to harm self or others while here. Also agrees to let us know of changing or worsening condition.
--- NOTE | 2018-08-01 16:59 | ED_ITS ---
HPI - Psych <Casimiro Daily, DO - Last Filed: 08/01/18 18:30> General Chief Complaint: Psychiatric Symptoms Stated Complaint: suicidal thoughts Time Seen by Provider: 08/01/18 16:59 Source: patient Mode of arrival: ambulatory Limitations: no limitations History of Present Illness HPI Narrative: Patient is a 43-year-old female who came in voluntarily for suicidal ideation. She was encouraged to come in by Tish her therapist at [facility] and [facility]. Her phone number is [phone]. Patient states that she has had suicidal thoughts since May of this year. She was seen in the emergency department at that time. She was not admitted to the hospital. She states that since then the thoughts have continued to potentially have worsened. She is on Zoloft. This is prescribed by her primary doctor. She has not seen a psychologist or psychiatrist to this point. She has never been admitted to the hospital in the past for suicidal ideation. She has never tried to hurt herself in the past. 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 She states she did drink some alcohol last evening but none since then. Denies any other illicit drugs or marijuana. She states that she does feel safe at home when there are people around her. She states she does live with her . She has access to a gun however no ammunition. She states that she does not think that she would act on any of her suicidal thoughts but is concerned that if ?1 more thing happens ?that she would potentially act on something. She states that she frequently does not have a plan however has [place] of [place] and states that this is probably how she would kill herself if she were to do it. Related Data Home Medications Medication Instructions Recorded Confirmed ascorbic acid (vitamin C) 1,000 mg 1 gram PO DAILY tab 06/27/18 08/01/18 tablet cod liver oil capsule 1 cap PO DAILY 06/27/18 08/01/18 magnesium 250 mg tablet 250 mg PO DAILY 06/27/18 08/01/18 valerian root 500 mg capsule 500 mg PO DAILY cap 06/27/18 08/01/18 alprazolam 0.5 mg PO DAILY PRN 08/01/18 08/01/18 fexofenadine [Karis Allergy] 1 tab PO DAILY PRN 08/01/18 08/01/18 oxybutynin chloride 5 mg PO BID 08/01/18 08/01/18 sertraline 25 mg PO DAILY 08/01/18 08/01/18 Allergies Allergy/AdvReac Type Severity Reaction Status Date / Time ofloxacin [From FLOXIN] Allergy Mild RASH Verified 07/29/18 10:30 Review of Systems <Casimiro Daily DO - Last Filed: 08/01/18 18:30> Constitutional Denies fever(s) and Denies headache(s) ENT Ears, Nose, Mouth, and Throat: Denies dizziness and Denies headache(s) Cardiovascular Denies chest pain and Denies dyspnea Respiratory Denies dyspnea Gastrointestinal Gastrointestinal: Denies abdominal pain Genitourinary Reports dysuria Comments: History of interstitial cystitis but this is not new Musculoskeletal Denies myalgias and Denies arthralgias Integumentary/Breasts Denies rash Neurologic Denies confusion, Denies dizziness and Denies headache(s) Psychiatric Reports anxiety, Denies confusion, Reports depression, Denies homicidal ideation and Reports suicidal ideation Allergic/Immunologic Denies urticaria PFSH <Casimiro Daily DO - Last Filed: 08/01/18 18:30> Medical History Generalized anxiety disorder (Acute) Interstitial cystitis (Acute) Major depressive disorder (Acute) PTSD (post-traumatic stress disorder) (Acute) Surgical History History of third molar tooth extraction Status post delivery (03/07/98) Social History Smoking Status: Former smoker second hand exposure: No alcohol intake: never substance use type: does not use Social History Smoking Status: Former smoker second hand exposure: No alcohol intake: never substance use type: does not use Exam <Caismiro Daily DO - Last Filed: 08/01/18 18:30> Initial Vital Signs Initial Vital Signs: Vital Signs Temperature 98.3 F 08/01/18 15:39 Pulse Rate 82 08/01/18 15:39 Respiratory Rate 18 08/01/18 15:39 Blood Pressure 109/78 08/01/18 15:39 Pulse Oximetry 100 08/01/18 15:39 Const General: cooperative, healthy appearing, comfortable, well developed, well groomed and No acute distress Orientation: alert, awake and oriented x3 HENMT Head: normal to inspection and normocephalic Resp Effort & Inspection: normal respiratory effort Auscultation: clear to auscultation bilaterally Cardio Rate: regular rate Rhythm: regular rhythm GI Inspection: non-distended Skin Rashes: no rashes Neuro General: alert and oriented x3 Cognition: normal cognition Speech: speech normal Extrem General: normal to inspection and No edema Psych Appearance: grossly normal and well kempt Mental Status: mental status grossly normal Speech and Movement: speech and movement normal Mood: congruent mood Affect: blunted and other Attitude: cooperative Thought Process: normal Thought Content: normal <DO Caren Lawrence Last Filed: 08/02/18 05:19> Initial Vital Signs Initial Vital Signs: Vital Signs Temperature 98.3 F 08/01/18 15:39 Pulse Rate 82 08/01/18 15:39 Respiratory Rate 18 08/01/18 15:39 Blood Pressure 109/78 08/01/18 15:39 Pulse Oximetry 100 08/01/18 15:39 Course <Casimiro Daily DO - Last Filed: 08/01/18 18:30> Orders Ordered: Discontinued Medications Lorazepam (Ativan) 1 mg PO NOW ONE Stop: 08/01/18 18:30 Last Admin: 08/01/18 18:47 Dose: 1 mg Lorazepam (Ativan) 1 mg PO NOW ONE Stop: 08/02/18 00:01 Last Admin: 08/01/18 23:00 Dose: 1 mg Lorazepam (Ativan) 0.5 mg PO NOW ONE Stop: 08/02/18 04:04 Last Admin: 08/02/18 04:04 Dose: 0.5 mg Vital Signs - 8 hr 08/01/18 22:27 08/02/18 03:49 Pulse Rate 56 L 53 L Respiratory Rate 14 14 Blood Pressure [Right Arm] 108/69 100/75 Pulse Oximetry 96 100 <DO Caren Lawrence Last Filed: 08/02/18 05:19> Orders Ordered: Discontinued Medications Lorazepam (Ativan) 1 mg PO NOW ONE Stop: 08/01/18 18:30 Last Admin: 08/01/18 18:47 Dose: 1 mg Lorazepam (Ativan) 1 mg PO NOW ONE Stop: 08/02/18 00:01 Last Admin: 08/01/18 23:00 Dose: 1 mg Lorazepam (Ativan) 0.5 mg PO NOW ONE Stop: 08/02/18 04:04 Last Admin: 08/02/18 04:04 Dose: 0.5 mg Vital Signs - 8 hr 08/01/18 22:27 08/02/18 03:49 Pulse Rate 56 L 53 L Respiratory Rate 14 14 Blood Pressure [Right Arm] 108/69 100/75 Pulse Oximetry 96 100 MDM - Psych <Casimiro Daily DO - Last Filed: 08/01/18 18:30> Lab Data Attestation: I reviewed the patient's lab results. Result diagrams: 08/01/18 17:05 08/01/18 17:05 Lab Results 08/01/18 08/01/18 08/01/18 Range/Units 17:05 17:05 17:05 WBC 8.5 (4.5-11.0) X10^3/uL RBC 4.45 (4.0-5.2) X10^6/uL Hgb 14.2 (12.0-16.0) g/dL Hct 40.9 (36-46) % MCV 91.9 (80-100) fL MCH 32.0 (26-34) PG MCHC 34.8 (30-36) % RDW 12.1 (11.6-14.8) % Plt Count 274 (150-400) X10^3/uL Neut % (Auto) 61.3 (50-75) % Lymph % (Auto) 29.5 (25-40) % [place] % (Auto) 6.5 (3-14) % Eos % (Auto) 1.7 L (2-4) % Baso % (Auto) 1.0 (0-2) % Neut # (Auto) 5200 (8446-9674) /uL Lymph # (Auto) 2500 (4913-1592) /uL [place] # (Auto) 600 (0-900) /uL Eos # (Auto) 100 (0-450) /uL Baso # (Auto) 100 (0-100) /uL Sodium 140 (137-145) mmol/L Potassium 3.9 (3.4-5.1) mmol/L Chloride 103 (98-107) mmol/L Carbon Dioxide 28 (22-32) mmol/L BUN 18 H (7-17) mg/dL Creatinine 0.70 (0.52-1.04) mg/dL Estimated GFR > 60.0 (>60) mL/min BUN/Creatinine Ratio 25.7 H (6-22) Glucose 82 (70-100) mg/dL Calcium 9.3 (8.4-10.2) mg/dL TSH 2.47 (0.47-4.68) uIU/mL Salicylates (<20) mg/dL Urine Opiates Screen (Negative) Ur Oxycodone Screen (Negative) Urine Methadone Screen (Negative) Acetaminophen < 10 L (10-30) ug/mL Ur Barbiturates Screen (Negative) U Tricyclic Antidepress (Negative) Ur Phencyclidine Scrn (Negative) Ur Amphetamines Screen (Negative) U Methamphetamines Scrn (Negative) Ur MDMA Scrn (Ecstasy) (Negative) U Benzodiazepines Scrn (Negative) Urine Cocaine Screen (Negative) U Marijuana (THC) Screen (Negative) Ethyl Alcohol < 10 mg/dL 08/01/18 08/01/18 Range/Units 17:05 18:00 WBC (4.5-11.0) X10^3/uL RBC (4.0-5.2) X10^6/uL Hgb (12.0-16.0) g/dL Hct (36-46) % MCV (80-100) fL MCH (26-34) PG MCHC (30-36) % RDW (11.6-14.8) % Plt Count (150-400) X10^3/uL Neut % (Auto) (50-75) % Lymph % (Auto) (25-40) % [place] % (Auto) (3-14) % Eos % (Auto) (2-4) % Baso % (Auto) (0-2) % Neut # (Auto) (9847-4498) /uL Lymph # (Auto) (2618-5572) /uL [place] # (Auto) (0-900) /uL Eos # (Auto) (0-450) /uL Baso # (Auto) (0-100) /uL Sodium (137-145) mmol/L Potassium (3.4-5.1) mmol/L Chloride (98-107) mmol/L Carbon Dioxide (22-32) mmol/L BUN (7-17) mg/dL Creatinine (0.52-1.04) mg/dL Estimated GFR (>60) mL/min BUN/Creatinine Ratio (6-22) Glucose (70-100) mg/dL Calcium (8.4-10.2) mg/dL TSH (0.47-4.68) uIU/mL Salicylates < 1.0 (<20) mg/dL Urine Opiates Screen Negative (Negative) Ur Oxycodone Screen Negative (Negative) Urine Methadone Screen Negative (Negative) Acetaminophen (10-30) ug/mL Ur Barbiturates Screen Negative (Negative) U Tricyclic Antidepress Negative (Negative) Ur Phencyclidine Scrn Negative (Negative) Ur Amphetamines Screen Negative (Negative) U Methamphetamines Scrn Negative (Negative) Ur MDMA Scrn (Ecstasy) Negative (Negative) U Benzodiazepines Scrn Positive H (Negative) Urine Cocaine Screen Negative (Negative) U Marijuana (THC) Screen Negative (Negative) Ethyl Alcohol mg/dL Point of Care Testing Test Results Negative Urine Dip Bedside Urine Glucose Negative Bedside Urine Bilirubin - Negative Bedside Urine Ketone - Negative Urine Specific [place] 1.025 Bedside Urine Occult Blood - Negative Bedside Urine pH 6.0 Bedside Urine Protein - Negative Bedside Urine Urobilinogen - Negative Bedside Urine Nitrite - Negative Bedside Urine Leukocytes - Negative Esterase MDM Narrative Medical decision making narrative: Patient's labs are unremarkable. She is voluntary. There is no signs of toxic ingestion. Care turned over to night provider at change of shift for placement. <Jenn Walker, DO - Last Filed: 08/02/18 05:19> Lab Data Attestation: I reviewed the patient's lab results. Lab Results 08/01/18 08/01/18 08/01/18 Range/Units 17:05 17:05 17:05 WBC 8.5 (4.5-11.0) X10^3/uL RBC 4.45 (4.0-5.2) X10^6/uL Hgb 14.2 (12.0-16.0) g/dL Hct 40.9 (36-46) % MCV 91.9 (80-100) fL MCH 32.0 (26-34) PG MCHC 34.8 (30-36) % RDW 12.1 (11.6-14.8) % Plt Count 274 (150-400) X10^3/uL Neut % (Auto) 61.3 (50-75) % Lymph % (Auto) 29.5 (25-40) % [place] % (Auto) 6.5 (3-14) % Eos % (Auto) 1.7 L (2-4) % Baso % (Auto) 1.0 (0-2) % Neut # (Auto) 5200 (8471-5565) /uL Lymph # (Auto) 2500 (2382-2317) /uL [place] # (Auto) 600 (0-900) /uL Eos # (Auto) 100 (0-450) /uL Baso # (Auto) 100 (0-100) /uL Sodium 140 (137-145) mmol/L Potassium 3.9 (3.4-5.1) mmol/L Chloride 103 (98-107) mmol/L Carbon Dioxide 28 (22-32) mmol/L BUN 18 H (7-17) mg/dL Creatinine 0.70 (0.52-1.04) mg/dL Estimated GFR > 60.0 (>60) mL/min BUN/Creatinine Ratio 25.7 H (6-22) Glucose 82 (70-100) mg/dL Calcium 9.3 (8.4-10.2) mg/dL TSH 2.47 (0.47-4.68) uIU/mL Salicylates (<20) mg/dL Urine Opiates Screen (Negative) Ur Oxycodone Screen (Negative) Urine Methadone Screen (Negative) Acetaminophen < 10 L (10-30) ug/mL Ur Barbiturates Screen (Negative) U Tricyclic Antidepress (Negative) Ur Phencyclidine Scrn (Negative) Ur Amphetamines Screen (Negative) U Methamphetamines Scrn (Negative) Ur MDMA Scrn (Ecstasy) (Negative) U Benzodiazepines Scrn (Negative) Urine Cocaine Screen (Negative) U Marijuana (THC) Screen (Negative) Ethyl Alcohol < 10 mg/dL 08/01/18 08/01/18 Range/Units 17:05 18:00 WBC (4.5-11.0) X10^3/uL RBC (4.0-5.2) X10^6/uL Hgb (12.0-16.0) g/dL Hct (36-46) % MCV (80-100) fL MCH (26-34) PG MCHC (30-36) % RDW (11.6-14.8) % Plt Count (150-400) X10^3/uL Neut % (Auto) (50-75) % Lymph % (Auto) (25-40) % [place] % (Auto) (3-14) % Eos % (Auto) (2-4) % Baso % (Auto) (0-2) % Neut # (Auto) (4255-1356) /uL Lymph # (Auto) (5818-2317) /uL [place] # (Auto) (0-900) /uL Eos # (Auto) (0-450) /uL Baso # (Auto) (0-100) /uL Sodium (137-145) mmol/L Potassium (3.4-5.1) mmol/L Chloride (98-107) mmol/L Carbon Dioxide (22-32) mmol/L BUN (7-17) mg/dL Creatinine (0.52-1.04) mg/dL Estimated GFR (>60) mL/min BUN/Creatinine Ratio (6-22) Glucose (70-100) mg/dL Calcium (8.4-10.2) mg/dL TSH (0.47-4.68) uIU/mL Salicylates < 1.0 (<20) mg/dL Urine Opiates Screen Negative (Negative) Ur Oxycodone Screen Negative (Negative) Urine Methadone Screen Negative (Negative) Acetaminophen (10-30) ug/mL Ur Barbiturates Screen Negative (Negative) U Tricyclic Antidepress Negative (Negative) Ur Phencyclidine Scrn Negative (Negative) Ur Amphetamines Screen Negative (Negative) U Methamphetamines Scrn Negative (Negative) Ur MDMA Scrn (Ecstasy) Negative (Negative) U Benzodiazepines Scrn Positive H (Negative) Urine Cocaine Screen Negative (Negative) U Marijuana (THC) Screen Negative (Negative) Ethyl Alcohol mg/dL Point of Care Testing Test Results Negative Urine Dip Bedside Urine Glucose Negative Bedside Urine Bilirubin - Negative Bedside Urine Ketone - Negative Urine Specific [place] 1.025 Bedside Urine Occult Blood - Negative Bedside Urine pH 6.0 Bedside Urine Protein - Negative Bedside Urine Urobilinogen - Negative Bedside Urine Nitrite - Negative Bedside Urine Leukocytes - Negative Esterase MDM Narrative Medical decision making narrative: Patient was signed out to me by the day shift provider. I have been independent exam in seen evaluated her myself. Her is with her. She remains actively suicidal. She is requesting to go to treatment and does not trust herself at home. [facility] has accepted her. The patient has been cooperative while in the ED. Discharge Plan Departure Patient Disposition: [facility] Clinical Impression: Suicidal ideation Discharge Date/Time: 08/02/18 04:26 Interventions: ED Discharge Assessment Last Done: 08/02/18 04:24 Referrals: Jesús Carranza ARNP [Primary Care Provider] -
[2018-08-01 17:12] LABS: Add Manual Diff / Slide Review NO; Basophils Absolute Auto 100 /uL (0-100); Eosinophils Absolute Auto 100 /uL (0-450); Eosinophils Percent Auto 1.7 % (2-4); Hematocrit 40.9 % (36-46); Hemoglobin 14.2 g/dL (12.0-16.0); Lymphocytes Absolute Auto 2500 /uL (1100-4500); Lymphocytes Percent Auto 29.5 % (25-40); Mean Corpuscular HGB Conc 34.8 % (30-36); Mean Corpuscular Volume 91.9 fL (80-100); Monocytes Absolute Auto 600 /uL (0-900); Monocytes Percent Auto 6.5 % (3-14); Neutrophils Absolute Auto 5200 /uL (1500-7000); Neutrophils Percent Auto 61.3 % (50-75); Platelet Count 274 X10^3/uL (150-400); Red Blood Cell Count 4.45 X10^6/uL (4.0-5.2); Red Cell Distribution Width 12.1 % (11.6-14.8); White Blood Cell Count 8.5 X10^3/uL (4.5-11.0)
[2018-08-01 17:45] LABS: Acetaminophen < 10 ug/mL (10-30); BUN Creatinine Ratio 25.7 (6-22); Blood Urea Nitrogen 18 mg/dL (7-17); Calcium 9.3 mg/dL (8.4-10.2); Carbon Dioxide 28 mmol/L (22-32); Chloride 103 mmol/L (98-107); Estimated Glomerular Filt Rate > 60.0 mL/min (>60); Ethanol (ETOH) < 10 mg/dL; Glucose 82 mg/dL (70-100); HEMOLYSIS < 15 (0-50); Potassium 3.9 mmol/L (3.4-5.1); Salicylate < 1.0 mg/dL (<20); Sodium 140 mmol/L (137-145)
[2018-08-01 18:29] LABS: Urine Amphetamines Negative (Negative); Urine Barbiturates Negative (Negative); Urine Benzodiazepines Positive (Negative); Urine Cocaine Negative (Negative); Urine MDMA Negative (Negative); Urine Methadone Negative (Negative); Urine Methamphetamines Negative (Negative); Urine Morphine/Opi cutoff 2000 Negative (Negative); Urine Oxycodone Negative (Negative); Urine Phencyclidine Negative (Negative); Urine Tetrahydrocannabinol Negative (Negative); Urine Tricyclic Antidepressant Negative (Negative)
[2018-08-01] MEDS: LORazepam 1 MG TABLET PO (18:47)
[2018-08-01 18:48] LABS: Thyroid Stimulating Hormone 2.47 uIU/mL (0.47-4.68)
[2018-08-01 22:27] VITALS: BP 108/69; PULSE 56; RESP 14; O2SAT 96
[2018-08-01] MEDS: LORazepam 0.5 MG TABLET 1 MG PO (23:00)
[2018-08-02 03:49] VITALS: BP 100/75; PULSE 53; RESP 14; O2SAT 100
[2018-08-02] MEDS: LORazepam 0.5 MG TABLET PO (04:04)
== END 2018-08-02 04:26 ==
PROVIDERS: Emergency Medicine; Emergency Provider Emergency Medicine; PCP Nurse Practitioner Family
DX: R45.851 Suicidal ideations (principal)
CPT/HCPCS: 36415; 80048; 80305; 80320; 80329; 81003; 81025; 84443; 85025; 99283; 99284; G0480

== ENCOUNTER → 2018-08-28 06:42 | Outpatient (CLI) | payer OTHER, MEDICAID, SELFPAY ==
--- NOTE | 2018-08-28 | DI.MRI.S_ITS ---
PROCEDURE: MR LUMBAR SPINE WO/W CON INDICATIONS: Low back pain TECHNIQUE: Noncontrast sagittal T1 spin echo and T2 fast spin echo, sagittal STIR, axial T1 and T2 fast spin echo through the lumbar spine. In cases with scoliosis, additional coronal T2 fast spin echo may be performed. After the administration of contrast, sagittal and axial T1 spin echo with fat saturation through the lumbar spine. COMPARISON: [facility], , L-SPINE 2-3 VIEWS, 12/31/2015, 13:12. FINDINGS: Image quality: Excellent. Alignment and curvature: Mild levoconvex scoliotic curvature is noted. There is mild retrolisthesis seen at the L3-L4 level. Marrow: Marrow is of normal overall signal. No acute vertebral body compression fractures. No suspicious marrow enhancement. Spinal cord: Conus medullaris terminates at the T12-L1 level. Visualized spinal cord demonstrates normal signal, without suspicious enhancement. Paraspinous soft tissues: No paravertebral masses or abnormal enhancement. T12-L1: Normal appearance. L1-L2: Normal appearance. L2-L3: Mild loss of disc height is seen. Loss of disc signal is seen. Mild disc bulge is seen, which is eccentric to the left. There is minimal left-sided and no significant right-sided neural foraminal narrowing seen. No significant central canal narrowing is seen. L3-L4: Moderate loss of disc height is seen. Loss of disc signal is seen. At least moderate disc bulge is seen, which is eccentric to the right. There is moderate bilateral neural foraminal narrowing seen, right worse than left. Moderate central canal narrowing is seen. L4-L5: No significant disc pathology is seen. Mild facet hypertrophy is seen. Moderate bilateral neural foraminal narrowing is seen at this level. No significant central canal narrowing is seen. L5-S1: The disc height and disc signal are relatively well-preserved. Moderate disc bulge is seen, which is eccentric to the left. Postoperative changes are seen, left hemilaminectomy. There is moderate right-sided and moderate to severe left-sided neural foraminal narrowing seen. There is a degree of compression seen upon the exiting left L5 nerve root. The central canal is widely patent. IMPRESSION: Postoperative change at L5-S1, with left hemilaminectomy and a patent central canal. Moderate to severe left-sided neural foraminal narrowing is seen at L5-S1, with associated left L5 nerve compression. Grade 1 retrolisthesis is seen at L3-L4. Moderate bilateral neural foraminal narrowing is seen at L3-L4 and L4-L5. Dictated by: Eitan Mariano M.D. on 08/28/2018 at 8:40 Approved by: Eitan Mariano M.D. on 08/28/2018 at 8:44
== END ==
PROVIDERS: PCP Nurse Practitioner Family; Visit Provider Orthopaedic Surgery
DX: M54.5 Low back pain (principal); M48.061 Spinal stenosis, lumbar region without neurogenic claudication; M48.07 Spinal stenosis, lumbosacral region; M43.16 Spondylolisthesis, lumbar region
CPT/HCPCS: 72158; A9579